=== PATIENT | male | born 1950 | race Caucasian/White ===

== ENCOUNTER → 2019-01-31 | Day surgery (SDC) | payer MEDICARE, OTHER ==
[~2019-01-31] MED LIST: COQ1050 MG PO; FISH OIL 1,001000 M2 PO; LIPITOR 20 MG T20 M1 PO; MULTIVITAMINS1 EAC7 PO; NORCO 5-325 TA1 EAC1 PO; NORVASC10 MG PO; VITAMIN D250 MCG PO; ZYRTEC10 M2 PO
[2019-01-31 07:06] LABS: HEMATOCRIT 40.8 % (42.0-52.0); HEMOGLOBIN 14.1 gm/dL (14.0-18.0); MCH 29.8 pg (26.0-34.0); MCHC 34.4 g/dL (28.0-37.0); MCV 86.6 fL (80.0-100.0); MPV 8.4 fl. (7.2-11.1); RBC 4.72 mil/uL (4.50-6.00); RDW-CV 13.3 % (10.5-14.5); WBC 5.7 thou/uL (4.0-11.0)
[2019-01-31 07:25] LABS: CALCIUM 9.2 mg/dL (8.5-10.1); CREATININE 1.3 mg/dL (0.6-1.3); POTASSIUM 3.7 mmol/L (3.5-5.1)
[2019-01-31 07:33] LABS: ALBUMIN 4.1 g/dL (3.4-5.0); TOTAL BILIRUBIN 0.4 mg/dL (<0.1-1.0); TOTAL PROTEIN 7.4 g/dL (6.4-8.2)
--- NOTE | 2019-01-31 11:02 | OP ---
[address] [address] OPERATIVE REPORT Name: YUNI VILLALPANDO Room: [facility]#: [id number] Admission: 01/31/19 Attend Phys: Crow Bacon DO Discharge: Date of : 50 Report #: [id number] THIS REPORT FOR: //name// CC: ADDIE Shahid DICTATED BY: Bryant Juarez DO PREOPERATIVE DIAGNOSIS: Left inguinal hernia. POSTOPERATIVE DIAGNOSIS: Bilateral inguinal hernias. PRIMARY SURGEON: Crow Bacon DO. MUTUEL MACHINE OPERATOR: Bryant Juarez DO, PGY3. OPERATION PERFORMED: Robotic-assisted laparoscopic bilateral inguinal hernia repair with mesh. ANESTHESIA TYPE: General and local. ESTIMATED BLOOD LOSS: 20. COMPLICATIONS: None. COMPLICATIONS: None. IMPLANTS: Large left and right Bard 3DMax hernia mesh. INDICATION FOR PROCEDURE: The patient is a pleasant 69-year-old male presented to the office with chief complaints of left groin pain and bulge. Since early of the summer, patient was found to have a left inguinal hernia on physical exam and recommended robotic-assisted laparoscopic left, possible right inguinal hernia repair with mesh. Full discussion of procedure, alternatives, risks and possible complications discussed to include but not limited to bleeding, infection, postoperative pain, scarring, recurrence of hernia, conversion to open procedure, urinary retention, numbness to the scrotum or inner thigh, mesh complications, need for mesh removal and anesthesia risks. The patient voiced understanding of these risks and agreed to proceed with surgery. DESCRIPTION OF PROCEDURE: The patient was again seen and examined in preoperative holding. Full informed written consent was obtained. Preoperative antibiotics 600 mg clindamycin was given. The patient was transferred to the operating room suite and placed on the operating table in supine position. At this time, anesthesia induced general anesthesia via endotracheal intubation, this was successful. SCDs were placed [place] [address] OPERATIVE REPORT Name: IRASEMAYUNI DIXON Room: [facility].#: [id number] Admission: 01/31/19 Attend Phys: Crow Bacon, DO Discharge: Date of : 50 Report #: [id number] Grounding pad was placed to left lateral thigh. Arms were padded with foam padding and tucked at the patient's side. Safety strap was placed across the patient's laparoscopic. All extremities and joints were padded and protected. The patient was prepped and draped using standard sterile fashion. Time-out was performed prior to onset of procedure, began by making a vertical incision superior to the umbilicus using open Gómez technique, we dissected down through subcutaneous tissue using blunt electrocautery until the level of the fascia was reached. Fascia was scored with electrocautery, grasped with bilateral Kochers, elevated and further transected. Once this was performed, a hemostat was used to bedoya the peritoneum. Two ggcgjj-xt-gczyi interrupted 0 Vicryl sutures were placed in the fascia apices. An 8 mm robotic camera trocar was placed in the abdomen. Abdomen was insufflated first using low flow then high flow. A 30-degree robotic camera was placed in the abdomen, noting no injury to underlying structures upon entry into the abdomen. The patient was placed in Trendelenburg and the bilateral groins were examined. There was noted to be a large bowel containing left inguinal hernia and a small right inguinal hernia. Robotic camera was removed. Patient's cart was brought to the patient's left side, robotic arms were then docked into the trocars. There was an additional 8 mm robotic trocar placed in the left mid abdomen and a 12 mm trocar placed in the right mid abdomen. Once the patient's cart was docked, fenestrated bipolar was placed into the left-sided trocar and a monopolar curved scissors were placed into the right. At this time, Dr. Bacon assumed position on the robot console to begin the dissection. Bilateral ASIS were marked on the anterior abdominal wall using electrocautery. The left-sided colon containing hernia was reduced. Next, the left-sided preperitoneal flap was made from the median umbilical ligament lateral to the ASIS. Dissection was then carried caudally to the superior pubic ramus and laterally to the inguinal hernia. Hernia sac was dissected out using blunt electrocautery and intraoperative pictures were obtained of the reduced hernia and preperitoneal flap. Next, the right preperitoneal flap pocket and hernia were dissected and reduced in the exact same fashion as the left. Intraoperative picture was then obtained. At this time, a large left and right Bard 3DMax mesh were brought onto the field, placed through the 12 mm trocar into the abdomen and into preperitoneal pocket overlying the inguinal hernias. Once these were placed in proper position, pictures were obtained and meshes were sewn in place medially at Sukhwinder's ligament using interrupted 2-0 Vicryl sutures and then once medially and laterally to the epigastric vessels and interrupted 2-0 Vicryl. Once the mesh was sewn into place and the flaps were closed using a 2-0 V-Loc running stitch. Once the pockets were closed, the left-sided hernia sac was tacked to the peritoneum using an additional interrupted 2-0 Vicryl in a xzeznh-yl-mrqaj fashion. Intraoperative pictures were obtained of the final completed and closed the flaps. Robotic instruments were removed as were all needles. Robot was undocked and the right-sided trocar fascia was closed using an 0 Vicryl in a hetszx-ec-mlxtm fashion by directly visualizing the fascia. Abdomen was fully desufflated under direct visualization. The umbilical fascial incision was closed with an additional 2 interrupted [id number]-yu-[id number] 0 [place] [address] OPERATIVE REPORT Name: IRASEMAYUNI FALCON Room: [facility].#: [id number] Admission: 01/31/19 Attend Phys: Crow Bacon DO Discharge: Date of : 50 Report #: [id number] Layered closure was then performed of the subcutaneous and dermal levels using interrupted 3-0 Vicryl. Skin was closed using a running subcuticular 4-0 Monocryl. The additional trocar sites skin was closed with subcuticular interrupted 4-0 Monocryl. Abdomen was cleansed using wet and dry lap. Sterile dressing was applied. Mastisol, Steri-Strips, Tegaderm, 4 x 4s, Medipore tape. The patient tolerated the procedure well and was extubated in the OR, transferred to PACU in stable condition. Brief recovery from anesthesia. PLAN: Discharged home. FOLLOWUP: Follow up in the office with Dr. Bacon in 1 week. <ELECTRONICALLY SIGNED> By: Crow Bacon DO 01/31/19 1102 1032 1057Acorey Bacon DO /joni
--- NOTE | 2019-01-31 11:27 | EKG ---
[place] [address] ELECTROCARDIOGRAM REPORT Name: IRASEMAYUNI FALCON Room: [facility].#: [id number] Admission: 01/31/19 Attend Phys: Crow Bacon DO Discharge: Date of : 50 Report #: [id number] THIS REPORT FOR: //name// [facility] Test Date: 2019-01-31 Test Time: 07:35:46 Pat Name: YUNI VILLALPANDO Department: Room: Gender: M Chain Dyer: RT : 1950 Requested By: Crow Bacon Order Number: [id number] Reading MD: Enrrique Chilel Measurements Intervals [place] Rate: 64 P: -4 NC: 172 QRS: 60 QRSD: 104 T: 62 QT: 402 QTc: 415 Interpretive Statements Sinus rhythm Baseline wander in lead(s) V1 No previous ECG available for comparison Electronically Signed On 01-31-2019 11:26:57 CDT by Enrrique Chilel [email or web address] <ELECTRONICALLY SIGNED> By: Enrrique Chilel MD, [facility] 01/31/19 1126 0735 0735 Enrrique Chilel MD, FACC /EPI
== END | disposition home or self-care (01) ==
LOC: M.SUR 06:21
PROVIDERS: Surgery
DX: K40.20 Bilateral inguinal hernia, without obstruction or gangrene, not specified as recurrent (principal); Z79.899 Other long term (current) drug therapy; Z88.0 Allergy status to penicillin

== ENCOUNTER 2020-11-03 14:38 | Emergency (ER) | payer MEDICARE, OTHER ==
[~2020-11-03] VITALS: Ht 175.3 cm; Wt 83.5 kg
[2020-11-03] MEDS ORDERED: DORYX MPC120 MG PO (14:57)
[2020-11-03] MEDS ORDERED: PRINIVIL20 M1 PO (14:57)
[2020-11-03] MEDS ORDERED: ASA81BEC PO (14:58)
[2020-11-03 16:19] VITALS: BP 145/65
== END 2020-11-03 16:19 | disposition home or self-care (01) ==
LOC: M.ERS 14:38
DX: S51.811A Laceration without foreign body of right forearm, initial encounter (principal); I10 Essential (primary) hypertension; E78.5 Hyperlipidemia, unspecified; Z87.442 Personal history of urinary calculi; Z88.0 Allergy status to penicillin; W18.39XA Other fall on same level, initial encounter; Y93.89 Activity, other specified; Y92.89 Other specified places as the place of occurrence of the external cause; Y99.8 Other external cause status